=== PATIENT | female | born 2000 | race Caucasian/White ===

== ENCOUNTER 2018-03-19 21:50 | Emergency (ER) | payer OTHER ==
[2018-03-19 21:57] VITALS: BMI 20.9
--- NOTE | 2018-03-19 22:11 | PDOC ---
History of Present Illness - General History Source: Patient Exam Limitations: No Limitations - History of Present Illness Initial Comments: 03/19/18 22:39 The patient is a 17 year old female,, with no significant PMH who presents to the emergency department after seeing some blood on the toilet paper prior to arrival. The patient states her last menstrual period was on February 01. The patient denies any past surgeries. The patient is not currently on any meds. The patient denies chest pain, shortness of breath, headache and dizziness. Denies fever, chills, nausea, vomit, diarrhea and constipation. Denies dysuria, frequency, urgency and hematuria. Allergies: NKA Past surgical history: None reported. Social history: No reported alcohol, drug, or cigarette use. PCP: Dr. Frank <Carlyn Gomez - Last Filed: 03/19/18 22:39> <Angeles Quarles - Last Filed: 03/20/18 01:14> - General Chief Complaint: Vaginal Bleeding Stated Complaint: PREG. VAGINAL BLEEDING Past History <Carlyn Gomez - Last Filed: 03/19/18 22:39> - Past Medical History COPD: No - Suicide/Smoking/Psychosocial Hx Smoking History: Never smoked <Angeles Quarles - Last Filed: 03/20/18 01:14> - Past Medical History Allergies/Adverse Reactions: Allergies Allergy/AdvReac Type Severity Reaction Status Date / Time No Known Allergies Allergy Verified 03/19/18 21:54 Home Medications: Ambulatory Orders Cephalexin Monohydrate [Keflex -] 500 mg PO BID #14 capsule 03/20/18 Cephalexin Monohydrate [Keflex -] 500 mg PO BID #20 capsule 03/20/18 Review of Systems - Review of Systems Able to Perform ROS?: Yes Comments:: 03/19/18 22:40 CONSTITUTIONAL: Absent: fever, no chills, no fatigue EYES: Absent: visual changes ENT: Absent: ear pain, no sore throat CARDIOVASCULAR: Absent: chest pain, no palpitations RESPIRATORY: Absent: cough, no SOB GI: Absent: abdominal pain, no nausea, no vomiting, no constipation, no diarrhea GENITOURINARY: Absent: dysuria, no frequency, no hematuria Present: vaginal spotting. MUSKULOSKELETAL: Absent: no arthralgia, no myalgia Present: left hip pain. mild lower back pain. SKIN: Absent: rash NEURO: Absent: headache <Caryln Gomez - Last Filed: 03/19/18 22:39> *Physical Exam - Vital Signs Last Vital Signs Temp Pulse Resp BP Pulse Ox 99 F 101 H 18 124/97 98 03/19/18 21:55 03/19/18 21:55 03/19/18 21:55 03/19/18 21:55 03/19/18 21:55 - Physical Exam Comments: 03/19/18 22:39 GENERAL: Well-appearing, well-nourished. No apparent distress. HEENT: Normocephalic, atraumatic. PERRL, EOM intact. CARDIOVASCULAR: Normal S1, S2. Regular rate and rhythm. PULMONARY: Clear to auscultation bilaterally. ABDOMEN: Soft, non-distended, non-tender. EXTREMITIES: Normal ROM in all four extremities. No gross deformities. (+) Left hip pain. SKIN: Warm, dry. No rash NEUROLOGICAL: No focal neurological deficits. <Carlyn Gomez - Last Filed: 03/19/18 22:39> - Vital Signs Last Vital Signs Temp Pulse Resp BP Pulse Ox 99 F 101 H 18 124/97 98 03/19/18 21:55 03/19/18 21:55 03/19/18 21:55 03/19/18 21:55 03/19/18 21:55 <Angeles Quarles - Last Filed: 03/20/18 01:14> Medical Decision Making - Medical Decision Making 03/20/18 01:11 Ultrasound shows an intrauterine gestational sac and yolk sac but no pole. No subchorionic bleed. Right ovary appears normal demonstrates normal flow. Left ovary appears normal with a cyst and demonstrates normal flow. Chest no significant free fluid. Impression early intrauterine . Prior to visualization of the pole Patient does not require oh gram as her blood type is <Angeles Quarles - Last Filed: 03/20/18 01:14> *DC/Admit/Observation/Transfer - Attestations Scribe Attestion: 03/19/18 22:40 Documentation prepared by Carlyn Gomez, acting as lead medical technologist for Angeles Quarles MD. <Carlyn Gomez - Last Filed: 03/19/18 22:39> <Angeles Quarles - Last Filed: 03/20/18 01:14> Diagnosis at time of Disposition: UTI (urinary tract infection) Qualifiers: Urinary tract infection type: site unspecified Hematuria presence: without hematuria Qualified Code(s): N39.0 - Urinary tract infection, site not specified Qualifiers: Weeks of gestation: less than 8 weeks Qualified Code(s): Z3A.01 - Less than 8 weeks gestation of - Discharge Dispostion Disposition: HOME Condition at time of disposition: Stable - Prescriptions Prescriptions: Cephalexin Monohydrate [Keflex -] 500 mg PO BID #14 capsule Cephalexin Monohydrate [Keflex -] 500 mg PO BID #20 capsule - Referrals Referrals: Selina Burgos MD [Staff Physician] - Debbie Frank MD [Primary Care Provider] - Silvino Andrea MD [Staff Physician] - - Patient Instructions Printed Discharge Instructions: DI for Urinary Tract Infection (UTI), DI for Vaginal Bleeding During Additional Instructions: YOU NEED TO HAVE A REPEAT PELVIC ULTRASOUND AND REPEAT BHCG IN ONE WEEK PLEASE FOLLOW UP WITH YOUR EXPERIMENTAL MECHANIC OUTBOARD MOTORS YOU HAVE A URINARY TRACT INFECTION AND NEED TO SANDER AND BUFFER YOUR ANTIBIOTICS AND TAKE THEN DIRECTED
[2018-03-19 22:51] LABS: HCG,QUALITATIVE URINE POSITIVE
[2018-03-19 22:58] LABS: URINE APPEARANCE SLCLOUDY; URINE BILIRUBIN NEGATIVE (<2.0 mg/dL); URINE BLOOD 2+ (NEGATIVE); URINE COLOR YELLOW; URINE GLUCOSE (UA) NEGATIVE (NEGATIVE); URINE KETONE NEGATIVE (NEGATIVE); URINE NITRITE NEGATIVE (NEGATIVE); URINE PROTEIN NEGATIVE (NEGATIVE)
[2018-03-19 23:14] LABS: URINE LEUK ESTERASE 2+ (NEGATIVE)
[2018-03-19 23:18] LABS: EPI CELLS FEW /HPF (FEW); URINE HYALINE CAST 2 /lpf; URINE MUCUS RARE
[2018-03-20] MEDS ORDERED: CEPHALEXIN MONOHYDRATE 500 MG CAPSULE (UD) PO STA (00:59)
[2018-03-20] MEDS ORDERED: CEPHALEXIN MONOHYDRATE 500 MG CAPSULE (UD) ONE (01:28)
[2018-03-20 01:42] VITALS: BP 114/72; PULSE 70; TEMP 98.2
== END 2018-03-20 01:40 | disposition home or self-care (01) ==
LOC: JER 21:50
DX: O26.891 Other specified pregnancy related conditions, first trimester (principal); O23.41 Unspecified infection of urinary tract in pregnancy, first trimester; Z3A.01 Less than 8 weeks gestation of pregnancy
CPT/HCPCS: 36415; 76817-TC; 81003; 81015; 84702; 84703; 86850; 86900; 86901; 99282-25

== ENCOUNTER 2018-03-21 20:06 | Emergency (ER) | payer OTHER ==
[2018-03-21 20:09] VITALS: BMI 21.9
--- NOTE | 2018-03-21 20:10 | PDOC ---
Rapid Medical Evaluation Chief Complaint: Vaginal Bleeding Time Seen by Provider: 03/21/18 20:07 Medical Evaluation: Allergies Allergy/AdvReac Type Severity Reaction Status Date / Time No Known Allergies Allergy Verified 03/19/18 21:54 03/21/18 20:07 17 year old femal c/o vaginal bleeding for the last 30 mins. + urine at home. PE: patient alert ox3. Plan ua, ucx, cbc, beta hcg, type and screen , transvaginal U/s patient to the Er for further management of care/
--- NOTE | 2018-03-21 21:10 | PDOC ---
History of Present Illness - General History Source: Patient Exam Limitations: No Limitations - History of Present Illness Initial Comments: 03/21/18 21:33 The patient is a 17 year old female with no significant PMH who presents to the emergency department with vaginal bleeding since earlier today. The patient reports that she took an at home test 6 days ago. She states that she went to see her OBGYN 3 days ago and was treated for a UTI. she also states that she was here 2 days ago by which she had a ultrasound. The patient reports associated clots with her vaginal bleeding. She states that she went through 3 menstrual pads in 30 minutes. The patient reports that her last menstrual was 6 weeks ago. She also reports episode of diarrhea. She denies any vaginal discharge or other urinary symptoms. The patient denies any fever, chills, nausea, vomit, and constipation. She denies chest pain, shortness of breath, headache and dizziness. The patient denies any other complaints <Jeffry Razo - Last Filed: 03/21/18 21:33> <Sheron Wesley - Last Filed: 03/21/18 23:39> - General Chief Complaint: Vaginal Bleeding Stated Complaint: VAGINAL BLEEDING Time Seen by Provider: 03/21/18 20:07 Past History <Jeffry Razo - Last Filed: 03/21/18 21:33> - Past Medical History COPD: No - Reproductive History (#): 1 Para: 0 Cervical CA: No Dysfunctional Uterine Bleeding: No Ectopic : No Endometrial CA: No Polycystic Ovaries: No Therapeutic (s) & number: No Tubal Ligation: No Spontaneous : 0 - Suicide/Smoking/Psychosocial Hx Smoking History: Never smoked <Sheron Wesley - Last Filed: 03/21/18 23:39> - Past Medical History Allergies/Adverse Reactions: Allergies Allergy/AdvReac Type Severity Reaction Status Date / Time No Known Allergies Allergy Verified 03/21/18 20:08 Home Medications: Ambulatory Orders NK [No Known Home Medication] 03/21/18 Review of Systems - Review of Systems Able to Perform ROS?: Yes Comments:: 03/21/18 21:33 GENERAL/CONSTITUTIONAL: No fever or chills. No weakness. HEAD, EYES, EARS, NOSE AND THROAT: No change in vision. No ear pain or discharge. No sore throat. CARDIOVASCULAR: No chest pain or shortness of breath. RESPIRATORY: No cough, wheezing, or hemoptysis. GASTROINTESTINAL: (+)diarrhea . No nausea, vomiting, or constipation. GENITOURINARY: (+)vaginal bleeding, clots. No dysuria, frequency, or change in urination. MUSCULOSKELETAL: No joint or muscle swelling or pain. No neck or back pain. SKIN: No rash NEUROLOGIC: No headache, vertigo, loss of consciousness, or change in strength/ sensation. ENDOCRINE: No increased thirst. No abnormal weight change. HEMATOLOGIC/LYMPHATIC: No anemia, easy bleeding, or history of blood clots. ALLERGIC/IMMUNOLOGIC: No hives or skin allergy. <Jeffry Razo - Last Filed: 03/21/18 21:33> *Physical Exam - Vital Signs Last Vital Signs Temp Pulse Resp BP Pulse Ox 98.3 F 102 H 18 107/87 98 03/21/18 20:06 03/21/18 20:06 03/21/18 20:06 03/21/18 20:06 03/21/18 20:06 - Physical Exam Comments: 03/21/18 21:33 GENERAL: Awake, alert, and fully oriented, in no acute distress HEAD: No signs of trauma EYES: PERRLA, EOMI, sclera anicteric, conjunctiva clear ENT: Auricles normal inspection, hearing grossly normal, nares patent, oropharynx clear without exudates. Moist mucosa NECK: Normal ROM, supple, no lymphadenopathy, JVD, or masses LUNGS: Breath sounds equal, clear to auscultation bilaterally. No wheezes, and no crackles HEART: Regular rate and rhythm, normal S1 and S2, no murmurs, rubs or gallops ABDOMEN: (+)belly soft with mild suprapubic tenderness. normoactive bowel sounds. No guarding, no rebound. No masses CERVICAL: (+)fingertip obs, no CMT, adnexal tenderness EXTREMITIES: Normal range of motion, no edema. No clubbing or cyanosis. No cords, erythema, or tenderness NEUROLOGICAL: Cranial nerves II through XII grossly intact. Normal speech, normal gait SKIN: Warm, Dry, normal turgor, no rashes or lesions noted. <Jeffry Razo - Last Filed: 03/21/18 21:33> - Vital Signs Last Vital Signs Temp Pulse Resp BP Pulse Ox 98.3 F 102 H 18 107/87 98 03/21/18 20:06 03/21/18 20:06 03/21/18 20:06 03/21/18 20:06 03/21/18 20:06 <Sheron Wesley - Last Filed: 03/21/18 23:39> ED Treatment Course - LABORATORY CBC & Chemistry Diagram: 03/21/18 21:30 - RADIOLOGY Radiology Studies Ordered: Category Date Time Status TRANSVAGINAL US PREG [US] Stat Ultrasound 03/21/18 21:05 Ordered <Sheron Wesley - Last Filed: 03/21/18 23:39> Medical Decision Making - Medical Decision Making 03/21/18 21:06 a/p: 17yo female at 5 weeks gestation on 03/20 ultrasound with heavy vag bleeding -3 pads in last 30 min -active bleeding on exam - passing clots -lower abd cramping -concern for active miscarriage Rh + a few days ago on labs Beta >5000 2 days ago will repeat labs and ultrasound currently on abx for Uti follows at [facility] - seen sunday03/21/18 23:35 beta is dropping no IUP on ultrasound today pt with a spontaneous AB discussed ultrasound and beta with the patient discussed need for repeat beta to trend to 0 discussed need to follow up with her CAREER PLACEMENT SERVICES COUNSELOR at the clinic answered all quesitons discussed reasons to return to the ED with increased bleeding 03/21/18 23:37 pt currently on abx for UTI 03/21/18 23:37 stable for d/c to home <Sheron Wesley - Last Filed: 03/21/18 23:39> *DC/Admit/Observation/Transfer - Attestations Scribe Attestion: 03/21/18 21:33 Documentation prepared by Jeffry Razo, acting as medical administrative technician for Sheron Wesley MD <Jeffry Razo - Last Filed: 03/21/18 21:33> - Discharge Dispostion Decision to Admit order: No - Attestations Physician Attestion: 03/21/18 23:39 I, Dr. Sheron Wesley, DO, attest that this document has been prepared under my direction and personally reviewed by me in its entirety. I further attest, that it accurately reflects all work, treatment, procedures and medical decision -making performed by me. <Sheron Wesley - Last Filed: 03/21/18 23:39> Diagnosis at time of Disposition: Spontaneous , UTI (urinary tract infection) - Discharge Dispostion Disposition: HOME Condition at time of disposition: Stable - Referrals Referrals: Debbie Frank MD [Primary Care Provider] - Silvino Andrea MD [Staff Physician] - - Patient Instructions Printed Discharge Instructions: DI for Miscarriage, DI for Urinary Tract Infection (UTI) Additional Instructions: Please continue to take all your antibiotics. Please make an appointment to see your CAREER PLACEMENT SERVICES COUNSELOR. Please return to the ED if you are bleeding through more than 2 pads an hour for 2 hours consecutively. Please take tylenol as needed for pain. Please repeat your Beta HCG in 2 days - on Sunday here in the ED. - Post Discharge Activity
[2018-03-21 21:41] LABS: BASO % 0.6 % (0-2.0); EOS % 0.5 % (0-4.5); HEMATOCRIT 41.5 % (32.4-45.2); HEMOGLOBIN 14.1 GM/dL (10.7-15.3); LYMPH % 35.3 % (8-40); MCH 29.1 pg (25.7-33.7); MEAN CELL VOLUME 85.6 fl (80-96); MEAN PLT VOLUME 8.3 fl (7.5-11.1); MONO % 10.6 % (3.8-10.2); PLATELET COUNT 258 K/MM3 (134-434); RBC 4.84 M/mm3 (3.60-5.2); RDW 14.8 % (11.6-15.6); WHITE BLOOD COUNT 6.1 K/mm3 (4.0-10.0)
[2018-03-21 21:42] LABS: URINE APPEARANCE CLOUDY; URINE BILIRUBIN NEGATIVE (<2.0 mg/dL); URINE BLOOD 3+ (NEGATIVE); URINE COLOR RED; URINE GLUCOSE (UA) NEGATIVE (NEGATIVE); URINE KETONE NEGATIVE (NEGATIVE); URINE NITRITE NEGATIVE (NEGATIVE); URINE UROBILINOGEN NEGATIVE mg/dL (0.2-1.0)
[2018-03-21 21:49] LABS: EPI CELLS RARE /HPF (FEW); URINE LEUK ESTERASE 1+ (NEGATIVE); URINE PROTEIN 2+ (NEGATIVE)
[2018-03-22 00:01] VITALS: BP 110/78; PULSE 78; TEMP 98.5
== END 2018-03-22 00:01 | disposition home or self-care (01) ==
LOC: JER 20:06
DX: O26.891 Other specified pregnancy related conditions, first trimester (principal); O03.9 Complete or unspecified spontaneous abortion without complication; Z3A.01 Less than 8 weeks gestation of pregnancy; Z87.440 Personal history of urinary (tract) infections
CPT/HCPCS: 76817-TC; 81003; 81015; 84702; 85025; 86850; 86900; 86901; 87086; 99281-25

== ENCOUNTER 2018-06-28 03:03 | Emergency (ER) | payer OTHER ==
[2018-06-28 03:19] VITALS: BMI 20.6
--- NOTE | 2018-06-28 03:21 | PDOC ---
History of Present Illness - General Chief Complaint: Vaginal Bleeding Stated Complaint: VAG BLEED/9 WEEKS Time Seen by Provider: 06/28/18 03:16 History Source: Patient, Old Records Exam Limitations: No Limitations - History of Present Illness Travel History: No Initial Comments: 06/28/18 03:21 HISTORY OF PRESENT ILLNESS: 17-year-old with LMP of 04/20/2018 who presents emergency Department with vaginal spotting and left pelvic pain for one day. Patient states she had a positive home test. Patient states she was seen here in March during her previous which ended in miscarriage. She denies any fevers, chills, nausea, vomiting, rectal bleeding, dysuria, hematuria. No recent travel or sick contacts. PAST MEDICAL HISTORY: Denies past medical history SURGICAL HISTORY: Denies ALLERGIES: No known drug allergies REVIEW OF SYSTEMS General/Constitutional: Denies fever or chills. Denies weakness, weight change. HEENT: Denies change in vision. Denies ear pain or discharge. Denies sore throat. Cardiovascular: Denies chest pain or shortness of breath. Respiratory: Denies cough, wheezing, or hemoptysis. Gastrointestinal: Denies nausea, vomiting, diarrhea or constipation. Denies rectal bleeding. Genitourinary: Denies dysuria, frequency, or change in urination. Musculoskeletal: Denies joint or muscle swelling or pain. Denies neck or back pain. Skin and breasts: Denies rash or easy bruising. Neurologic: Denies headache, vertigo, loss of consciousness, or loss of sensation. Psychiatric: Denies depression or anxiety. Endocrine: Denies increased thirst. Denies abnormal weight change. Hematologic/Lymphatic: Denies anemia, easy bleeding, or history of blood clots. Allergic/Immunologic: Denies hives or skin allergy. Denies latex allergy. PHYSICAL EXAM General Appearance: Well-appearing, appropriately dressed. No apparent distress , no intoxication. HEENT: EOMI, PERRLA, normal ENT inspection, normal voice, TMs normal, pharynx normal. No conjunctival pallor. No photophobia, scleral icterus. Neck: Supple. Trachea midline. No tenderness, rigidity, carotid bruit, stridor , lymphadenopathy, or thyromegaly. Respiratory/Chest: Lungs CTAB. No shortness of breath, chest tenderness, respiratory distress, accessory muscle use. No crackles, rales, rhonchi, stridor , wheezing, dullness Cardiovascular: RRR. S1, S2. No JVD, murmur, bradycardia, tachycardia. Vascular Pulses: Dorsalis-Pedis (R): 2+, Dorsalis-Pedis (L): 2+ Gastrointestinal/Abdominal: Normal bowel sounds. Abdomen soft, non-distended. No tenderness or rebound tenderness. No organomegaly, pulsatile mass, guarding, hernia, hepatomegaly, splenomegaly. RAIL CAR MECHANIC: Cervical os closed. Malodorous thick white discharge present. -CMT. No blood in vault. No adnexal tenderness present. Lymphatic: No adenopathy, tenderness. Musculoskeletal/Extremities: Normal inspection. FROM of all extremities, normal capillary refill. Pelvis Stable. No CVA tenderness. No tenderness to extremities, pedal edema, swelling, erythema or deformity. Integumentary: Appropriate color, dry, warm. No cyanosis, erythema, jaundice or rash Neurologic: fingernail technician II-XII intact. Fully oriented, alert. Appropriate mood/affect. Motor strength 5/5. No appreciable EOM palsy, facial droop or sensory deficit. Past History - Past Medical History Allergies/Adverse Reactions: Allergies Allergy/AdvReac Type Severity Reaction Status Date / Time No Known Allergies Allergy Verified 03/21/18 20:08 Home Medications: Ambulatory Orders NK [No Known Home Medication] 03/21/18 COPD: No - Reproductive History (#): 1 Para: 0 Cervical CA: No Dysfunctional Uterine Bleeding: No Ectopic : No Endometrial CA: No Polycystic Ovaries: No Therapeutic (s) & number: No Tubal Ligation: No Spontaneous : 0 - Suicide/Smoking/Psychosocial Hx Smoking History: Never smoked Have you smoked in the past 12 months: No Information on smoking cessation initiated: No Hx Alcohol Use: No Drug/Substance Use Hx: No *Physical Exam - Vital Signs Last Vital Signs Temp Pulse Resp BP Pulse Ox 97.9 F 88 18 109/64 100 06/28/18 03:16 06/28/18 03:16 06/28/18 03:16 06/28/18 03:16 06/28/18 03:16 ED Treatment Course - LABORATORY CBC & Chemistry Diagram: 06/28/18 03:42 06/28/18 03:42 Medical Decision Making - Medical Decision Making 06/28/18 03:37 A/P: 17-year-old woman who is 9 weeks by dates with vaginal spotting RAIL CAR MECHANIC exam performed with PHYLLIS Angulo at the bedside External structures are within normal limits Cervical os is closed No cervical motion tenderness Thick white malodorous discharge present No adnexal masses or tenderness present DDx: Cervical ripening, ectopic , missed AB, completed AB, DVT Labs including type and screen and beta hCG, urine including culture, transvaginal ultrasound 06/28/18 06:12 Laboratory testing is unremarkable with the beta hCG is 83,419.6. Pt is Rh+ Patient is pending ultrasound for dispo. *DC/Admit/Observation/Transfer - Discharge Dispostion Condition at time of disposition: Good - Referrals Referrals: Ana Garcia MD [Primary Care Provider] - - Patient Instructions - Post Discharge Activity
[2018-06-28 03:53] LABS: BASO % 0.2 % (0-2.0); EOS % 0.7 % (0-4.5); HCG,QUALITATIVE URINE Positive; HEMATOCRIT 36.4 % (32.4-45.2); HEMOGLOBIN 12.7 GM/dL (10.7-15.3); LYMPH % 23.1 % (8-40); MCH 29.6 pg (25.7-33.7); MCHC 34.9 g/dl (32.0-36.0); MEAN CELL VOLUME 84.9 fl (80-96); MEAN PLT VOLUME 8.1 fl (7.5-11.1); MONO % 7.1 % (3.8-10.2); NEUT % 68.9 % (42.8-82.8); PLATELET COUNT 249 K/MM3 (134-434); RBC 4.28 M/mm3 (3.60-5.2); WHITE BLOOD COUNT 10.1 K/mm3 (4.0-10.0)
[2018-06-28 03:56] LABS: URINE APPEARANCE CLEAR; URINE BILIRUBIN NEGATIVE (<2.0 mg/dL); URINE COLOR STRAW; URINE GLUCOSE (UA) NEGATIVE (NEGATIVE); URINE KETONE NEGATIVE (NEGATIVE); URINE LEUK ESTERASE NEGATIVE (NEGATIVE); URINE NITRITE NEGATIVE (NEGATIVE); URINE PROTEIN NEGATIVE (NEGATIVE); URINE UROBILINOGEN NEGATIVE mg/dL (0.2-1.0)
[2018-06-28 04:14] LABS: ANION GAP 7 MMOL/L (8-16); BLOOD UREA NITROGEN 9 mg/dL (7-18); CHLORIDE 103 mmol/L (98-107); CO2 28 mmol/L (21-32); CREATININE 0.4 mg/dL (0.55-1.3); GLUCOSE,RANDOM 89 mg/dL (74-106); POTASSIUM 3.9 mmol/L (3.5-5.1); SODIUM 138 mmol/L (136-145)
[2018-06-28 07:03] VITALS: BP 101/62; PULSE 84; TEMP 99.2
--- NOTE | 2018-06-28 07:48 | PDOC ---
*Physical Exam - Vital Signs Last Vital Signs Temp Pulse Resp BP Pulse Ox 99.2 F 84 20 101/62 98 06/28/18 07:02 06/28/18 07:02 06/28/18 07:02 06/28/18 07:02 06/28/18 07:02 ED Treatment Course - LABORATORY CBC & Chemistry Diagram: 06/28/18 03:42 06/28/18 03:42 - ADDITIONAL ORDERS Additional order review: Laboratory Results 06/28/18 06/28/18 06/28/18 03:42 03:42 03:42 Sodium 138 Potassium 3.9 Chloride 103 Carbon Dioxide 28 Anion Gap 7 L BUN 9 Creatinine 0.4 L Creat Clearance w eGFR > 60 Random Glucose 89 Calcium 9.0 Beta HCG, Quant 23320.6 Urine Color Straw Urine Appearance Clear Urine pH 5.0 Ur Specific [place] 1.006 Urine Protein Negative Urine Glucose (UA) Negative Urine Ketones Negative Urine Blood Negative Urine Nitrite Negative Urine Bilirubin Negative Urine Urobilinogen Negative Ur Leukocyte Esterase Negative Urine HCG, Qual Positive Blood Type O POSITIVE Antibody Screen Negative 06/28/18 03:42 RBC 4.28 MCV 84.9 MCHC 34.9 RDW 15.0 MPV 8.1 Neutrophils % 68.9 D Lymphocytes % 23.1 D Monocytes % 7.1 Eosinophils % 0.7 Basophils % 0.2 Medical Decision Making - Medical Decision Making 06/28/18 07:49 Received signout from Neil Smith. Patient is 17F here today with vaginal spotting and left sided pelvic pain. Vitals normal and stable. Rh+, UA negative for infection, beta quant 80k. Pending TVUS. 06/28/18 09:55 TV US shows 9wk2d . Patient states that she does not require vitamin prescription. Will discharge with OB follow up. *DC/Admit/Observation/Transfer Diagnosis at time of Disposition: - Discharge Dispostion Disposition: HOME Condition at time of disposition: Improved - Referrals Referrals: Ana Garcia MD [Primary Care Provider] - - Patient Instructions Printed Discharge Instructions: Threatened Additional Instructions: Your ultrasound shows you have a live 9 weeks and 2 days. Your blood type is o positive. Return for severe bleeding pain, feeling dizzy or any concerns. You should not have intercourse or put anything intravaginally until bleeding stops. - Post Discharge Activity
--- NOTE | 2018-06-28 09:50 | PDOC ---
*Physical Exam - Vital Signs Last Vital Signs Temp Pulse Resp BP Pulse Ox 99.2 F 84 20 101/62 98 06/28/18 07:02 06/28/18 07:02 06/28/18 07:02 06/28/18 07:02 06/28/18 07:02 - Physical Exam General Appearance: Yes: Nourished Respiratory/Chest: positive: Lungs Clear, Normal Breath Sounds Cardiovascular: positive: Regular Rhythm, Regular Rate, S1, S2 Gastrointestinal/Abdominal: positive: Normal Bowel Sounds, Flat, Soft ED Treatment Course - LABORATORY CBC & Chemistry Diagram: 06/28/18 03:42 06/28/18 03:42 - ADDITIONAL ORDERS Additional order review: Laboratory Results 06/28/18 06/28/18 06/28/18 03:42 03:42 03:42 Sodium 138 Potassium 3.9 Chloride 103 Carbon Dioxide 28 Anion Gap 7 L BUN 9 Creatinine 0.4 L Creat Clearance w eGFR > 60 Random Glucose 89 Calcium 9.0 Beta HCG, Quant 30108.6 Urine Color Straw Urine Appearance Clear Urine pH 5.0 Ur Specific [place] 1.006 Urine Protein Negative Urine Glucose (UA) Negative Urine Ketones Negative Urine Blood Negative Urine Nitrite Negative Urine Bilirubin Negative Urine Urobilinogen Negative Ur Leukocyte Esterase Negative Urine HCG, Qual Positive Blood Type O POSITIVE Antibody Screen Negative 06/28/18 03:42 RBC 4.28 MCV 84.9 MCHC 34.9 RDW 15.0 MPV 8.1 Neutrophils % 68.9 D Lymphocytes % 23.1 D Monocytes % 7.1 Eosinophils % 0.7 Basophils % 0.2 Medical Decision Making - Medical Decision Making 06/28/18 09:48 17 yo F currently positive preg test, with vaginal spotting. signed outby Luis Smith. on exam pt sitting comfortably. labs reviewed pos , bhcg in 80,000. us with live IUP will dc home with fu with ob/ blood type O RH pos. 06/28/18 09:50 *DC/Admit/Observation/Transfer - Discharge Dispostion Disposition: HOME Condition at time of disposition: Improved Decision to Admit order: No - Referrals Referrals: Ana Garcia MD [Primary Care Provider] - - Patient Instructions Printed Discharge Instructions: Threatened Additional Instructions: you ultrasound shows you have a live 9 weeks and 2 days. your blood type is o positive. return for severe bleeding pain, feeling dizzy or any concerns. you should not have intercourse or put anything intravaginally until bleeding stops. - Post Discharge Activity
== END 2018-06-28 10:31 | disposition home or self-care (01) ==
LOC: JER 03:03
DX: O26.891 Other specified pregnancy related conditions, first trimester (principal); Z3A.09 9 weeks gestation of pregnancy
CPT/HCPCS: 36415; 76817-TC; 80048; 81003; 84702; 84703; 85025; 86850; 86900; 86901; 87086; 99281-25

== ENCOUNTER 2019-01-25 21:42 | Inpatient (IN) | payer OTHER ==
[~2019-01-25 21:42] MED LIST: AMPICILLIN - 2 GM in SODIUM CHLORIDE 100 ML IVPB ONE
[2019-01-25] MEDS ORDERED: AMPICILLIN SODIUM 2 GM VIAL ONE (22:37)
[2019-01-25] MEDS ORDERED: DEXTROSE 5%-LACTATED RINGERS 1,000 ML IV SCH (23:00)
[2019-01-25 23:02] VITALS: BMI 32.0
[2019-01-25 23:22] LABS: BASO % 0.1 % (0-2.0); EOS % 1.1 % (0-4.5); HEMATOCRIT 38.2 % (32.4-45.2); HEMOGLOBIN 12.8 GM/dL (10.7-15.3); LYMPH % 14.5 % (8-40); MCHC 33.5 g/dl (32.0-36.0); MEAN CELL VOLUME 89.5 fl (80-96); MONO % 4.9 % (3.8-10.2); NEUT % 79.4 % (42.8-82.8); PLATELET COUNT 214 K/MM3 (134-434); RBC 4.27 M/mm3 (3.60-5.2); RDW 15.5 % (11.6-15.6); WHITE BLOOD COUNT 11.3 K/mm3 (4.0-10.0)
--- NOTE | 2019-01-25 23:32 | HP ---
Admitting History and Physical - Admission Chief Complaint: labor pains History of Present Illness: 18 y/o at 39 weeks coems with complaints of pain since 8pm. No lof or bleeding. baby is moving. She is a pt of [facility]. GBS pos, cbc wnl, hiv neg, hb roberta, cf neg History Source: Patient Limitations to Obtaining History: No Limitations - Past Medical History [employer]: No: Alzheimer's, CVA, Dementia, Migraine, Multiple Sclerosis, Peripheral Neuropathy, Parkinson's, Seizure, Syncope, TIA, Vertigo, Other Cardiovascular: No: AFIB, Aneurysm, Aortic Insufficiency, Aortic Stenosis, CAD, CHF, Deep Vein Thrombosis, HTN, Hyperlipdemia, FL, Mitral Insufficiency, Mitral Stenosis, Murmur, Pulmonary Hypertension, Other Pulmonary: No: Asthma, Bronchitis, Cancer, COPD, O2 Dependent, Pneumonia, Previously Intubated, Pulmonary Embolus, Pulmonary Fibrosis, Sleep Apnea, Other Gastrointestinal: No: Ascites, Cancer, Constipation, Crohn's Disease, Diverticulitis, Diverticulosis, Esophageal Varices, Gastritis, GERD, GI Bleed, Hemorrhoids, Hiatal Hernia, Inflamatory Bowel Disease, Irritable Bowel Disease, Pancreatitis, Peptic Ulcer Disease, Ulcerative Colitis, Other Hepatobiliary: No: Cirrhosis, Cholelithiasis, Cholecystitis, Choledocholithiasis , Hepatitis A, Hepatitis B, Hepatitis C, Other Renal/: No: Renal Failure, Renal Inusuff, BPH, Cancer, Hematuria, Hemodialysis , Neurogenic Bladder, Renal Calculi, UTI, Other Reproductive: No: Ectopic , Endometriosis, Fibroids, PID, Polycystic Ovary Syndrome, Postmenopausal, Other ...LMP: 02/01/18 ...: 2 ...Para: 0 Heme/Onc: No: Anemia, B12 Deficiency, Bleeding Disorder, Cancer, Current Chemotherapy, Current Radiation Therapy, Hemochromatosis, Hypercoaguable State, Myeloproliferative Synd, Sickle Cell Disease, Sickle Cell Trait, Thrombocytopenia, Other Infectious Disease: No: AIDS, C-Diff, Herpes Zoster, HIV, MRSA, STD's, Tuberculosis, VREF, Other Psych: No: Addictions, Anxiety, Bipolar, Depression, Panic, Psychosis, Schizophrenia, Other Musculoskeletal: No: Bursitis, Chronic low back pain, Hemiparesis, Hemiplegia, Osteoarthritis, Paraplegia, Other Rheumatology: No: Fibromyalgia, Gout, Lupus, Rheumatoid Arthritis, Sarcoidosis, Vasculitis, Other Endocrine: No: Liam's Disease, Afsaneh's Disease, Diabetes Insipidus, Diabetes Mellitus, Hyperparathyroidism, Hyperthyroidism, Hypothyroidism, Osteopenia, SIADH, Other Dermatology: No: Basal Cell, Cellulitis, Eczema, Melanoma, Psoriasis, Squamous Cell, Other - Past Surgical History Past Surgical History: No: None, AAA Repair, AICD, Amputation, Appendectomy, Arthrosocopy, AV Fistula/Graft, Bariatric Surgery, Breast Biopsy, Bypass, CABG, Carotid Endarterectomy, Cataract Removal, Cholecystectomy, Colectomy, Colonoscopy, Colostomy, Craniotomy, , Cystectomy, Hernia Repair, Hysterectomy, Ileal Conduit, Ileosotomy, Joint Replacement, Kidney Transplant, Laminectomy, Liver Transplant, Mastectomy, Nephrectomy, Oopherectomy, Orchiectomy, Permanent Pacemaker, Prostatectomy, Splenectomy, Stent, Thoracotomy , TURP, Tonsillectomy, Tubal Ligation, Upper Endoscopy, Valve Replacement, Vasectomy, Vein Stripping/Ligation - Advance Directives Advance Directives: No: Living Will, Health Care Proxy, DNR, Organ Donor, Tissue Donor, MOLST - Smoking History Smoking history: Never smoked Have you smoked in the past 12 months: No - Alcohol/Substance Use Hx Alcohol Use: No History of Substance Use: denies: None, Cocaine, Heroin, Marijuana, Prescription , Tranquilizers - Social History Usual Living Arrangement: No: Alone, With Spouse, With Parent, With Significant Other, With Child, Assisted Living, Longterm, Other Home Medications - Allergies Allergies/Adverse Reactions: Allergies Allergy/AdvReac Type Severity Reaction Status Date / Time No Known Allergies Allergy Verified 01/25/19 22:34 - Home Medications Home Medications: Ambulatory Orders Vit No.129/Iron/Folic [ One Daily Tablet] 1 tab PO DAILY Review of Systems - Review of Systems Constitutional: denies: No Symptoms, Chills, Diaphoresis, Fever, Lethargy, Loss of Appetite, Malaise, Night Sweats, Unintentional Wgt. Loss, Weakness, Other Eyes: denies: No Symptoms, Blind Spots, Blurred Vision, Double Vision, Eye Pain , Floaters, Photophobia, Recent Change in Vision, Other HENT: denies: No Symptoms, Difficult Swallowing, Ear Discharge, Ear Pain, Epistaxis, Gingival Bleeding, Hearing Loss, Mouth Swelling, Nasal Congestion, Ocular Prosthesis, Throat Pain, Toothache, Ringing in Ears, Other Neck: denies: No Symptoms, Decreased ROM, Lumps, Pain on Movement, Stiffness, Swollen Glands, Tenderness, Other Cardiovascular: denies: No Symptoms, Chest Pain, Edema, Palpitations, Shortness of Breath, Other Respiratory: denies: No Symptoms, Cough, Exercise Intolerance, Hemoptysis, Orthopnea, PND, Snoring, SOB, SOB on Exertion, Wheezing, Other Gastrointestinal: denies: No Symptoms, Abdominal Pain, Bloating, Constipation, Diarrhea, Dysphagia, Indigestion, Melena, Nausea, Rectal Bleeding, Vomiting, Vomiting Blood, Other Genitourinary: denies: No Symptoms, Burning, Discharge, Dysuria, Flank Pain, Frequency, Hematuria, Incontinence, Lesions, Menses, Pain, Testicular Mass, Testicular Pain, Testicular Swelling, Urgency, Vaginal Bleeding, Other Breasts: denies: No Symptoms Reported, See HPI, Breast Implants, Discharge from Nipple, Lumps, Pain, Skin Changes, Other Musculoskeletal: denies: No Symptoms, Back Pain, Crepitus, Decreased ROM, Extremity Pain, Joint Pain, Joint Swelling, Muscle Pain, Muscle Cramps, Muscle Weakness, Other Integumentary: denies: No Symptoms, Blister, Bruising, Change in Color, Eczema, Erythema, Incision, Lesions, Lump, Pallor, Pruritis, Rash, Wound, Other Neurological: denies: No Symptoms, Change in LOC, Change in Speech, Confusion, Dizziness, Headache, Incoordination, Numbness, Parasthesia, Pre-Existing Deficit , Seizure, Syncope, Tremors, Unsteady Gait, Weakness, Other Endocrine: denies: No Symptoms, Excessive Sweating, Flushing, Increased Hunger, Increased Thirst, Intolerance to Cold, Intolerance to Heat, Unexplained Weight Gain, Unexplained Weight Loss, Other Hematology/Lymphatic: denies: No Symptoms, Easily Bruised, Excessive Bleeding, Swollen Glands, Other Psychiatric: denies: No Symptoms, Altered Sleep Pattern, Anxiety, Depression, Hallucinations, Panic, Paranoia, Suicidal, Other Physical Examination Vital Signs: Vital Signs Temperature 98.7 F 01/25/19 21:50 Pulse Rate 102 H 01/25/19 23:00 Respiratory Rate 20 01/25/19 23:00 Blood Pressure 127/83 01/25/19 23:00 O2 Sat by Pulse Oximetry (%) Constitutional: Yes: Well Nourished Eyes: Yes: WNL HENT: Yes: WNL Neck: Yes: WNL Cardiovascular: Yes: WNL Respiratory: Yes: WNL Gastrointestinal: Yes: WNL ...Rectal Exam: Yes: WNL Renal/: Yes: WNL Breast(s): Yes: WNL Musculoskeletal: Yes: WNL Extremities: Yes: WNL Integumentary: Yes: WNL Neurological: Yes: WNL ...Motor Strength: WNL Psychiatric: Yes: WNL Labs: CBC, BMP 01/25/19 22:10 Assessment/Plan as above admit labs expect
[2019-01-25 23:36] LABS: INR 0.88 (0.83-1.09); PROTHROMBIN TIME (PATIENT) 10.4 SEC (9.7-13.0)
[2019-01-25] MEDS ORDERED: ELECTROLYTE-148 SOLN 1,000 ML IV SCH (23:45)
[2019-01-25 23:48] LABS: ANION GAP 10 MMOL/L (8-16); BLOOD UREA NITROGEN 11 mg/dL (7-18); CALCIUM 8.9 mg/dL (8.5-10.1); CHLORIDE 104 mmol/L (98-107); CO2 23 mmol/L (21-32); CREATININE 0.5 mg/dL (0.55-1.3); GLUCOSE,RANDOM 128 mg/dL (74-106); POTASSIUM 3.8 mmol/L (3.5-5.1); SODIUM 136 mmol/L (136-145)
[2019-01-26] MEDS ORDERED: OXYTOCIN 30 UNITS in 0.9% NS 30 UNIT/500 ML INFUS.BAG IVPB ONE (00:28)
[2019-01-26] MEDS ORDERED: OXYTOCIN 30 UNITS in 0.9% NS 30 UNIT/500 ML INFUS.BAG IVPB SCH (00:30)
--- NOTE | 2019-01-26 01:11 | PN ---
Ante-Partal Exam - Subjective Vital Signs: Vital Signs Temperature 98.7 F 01/25/19 21:50 Pulse Rate 102 H 01/25/19 23:00 Respiratory Rate 20 01/25/19 23:00 Blood Pressure 127/83 01/25/19 23:00 O2 Sat by Pulse Oximetry (%) Bleeding: No Headache: No Visual changes: No Right upper quadrant pain: No - Contractions Contractions: Yes Regularity: Regular Intensity: Moderate Monitor Mode: External - Exam during Labor Heart Rate: 150 Variability: Moderate Heart Rate Location: [facility] Category: I Monitor Accelerations: Present Monitor Decelerations: None Exam: Vaginal Dilatation (cm): 9 Effacement (%): 100 Amniotic Membrane Status: Ruptured Nitrazine Test: Positive Amniotic Fluid: Clear Station: 0 - Assessment/Plan Assessment/Plan: expect
[2019-01-26] MEDS ORDERED: AMPICILLIN SODIUM 1 GM VIAL ONE (01:37)
[2019-01-26] MEDS ORDERED: AMPICILLIN - 1 GM in SODIUM CHLORIDE 100 ML IVPB SCH (02:30)
[2019-01-26] MEDS ORDERED: LIDOCAINE HCL 1% PRESERVATIVE FREE - 30ML VIAL ONE (03:57)
[2019-01-26] MEDS ORDERED: OXYTOCIN 20 UNITS in 0.9% NS 20 UNIT/1,000 ML INFUS.BAG IV ONE (03:57)
[2019-01-26] MEDS ORDERED: BISACODYL 10 MG SUPP.RECT RC PRN (04:17)
[2019-01-26] MEDS ORDERED: WITCH HAZEL 50% (TUCKS) 40 PAD/JAR PAD TP PRN (04:17)
[2019-01-26] MEDS ORDERED: METHYLERGONOVINE MALEATE 0.2 MG/1 ML AMP IM PRN (04:17)
[2019-01-26] MEDS ORDERED: ACETAMINOPHEN 325 MG TABLET (FP) PO PRN (04:17)
[2019-01-26] MEDS ORDERED: BENZOCAINE 20% 57 GM BOTTLE TP PRN (04:17)
[2019-01-26] MEDS ORDERED: BENZOCAINE 28 GM HEMORRHOIDAL OINTMENT TP PRN (04:17)
[2019-01-26] MEDS ORDERED: IBUPROFEN 600 MG TABLET (FP) PO PRN (04:17)
--- NOTE | 2019-01-26 04:23 | PN ---
Delivery - Delivery Vaginal Delivery: No Problems EBL (cc): 500 Delivery, Single - Stages of Labor Date 1st Stage Initiatied: 01/26/19 Time 1st Stage Initiated: 20:00 Date 2nd Stage Initiated: 01/26/19 Date of Delivery: 01/26/19 - Feeding Plan Initial Plan: Elected not to breastfeed exclusively throughout hospitalization Remarks - Remarks Remarks: ebl 500 can x 1 and cut
[2019-01-26] MEDS ORDERED: OXYTOCIN 20 UNITS in 0.9% NS 20 UNIT/1,000 ML INFUS.BAG IV SCH (04:30)
[2019-01-26] MEDS: PRENATAL VITAMINS W/ FOLIC ACID TABLET (FP) PO SCH (10:14)
[2019-01-27 07:10] LABS: BASO % 0.3 % (0-2.0); EOS % 0.7 % (0-4.5); HEMATOCRIT 31.9 % (32.4-45.2); HEMOGLOBIN 10.8 GM/dL (10.7-15.3); LYMPH % 17.5 % (8-40); MCH 29.9 pg (25.7-33.7); MCHC 33.8 g/dl (32.0-36.0); MEAN CELL VOLUME 88.6 fl (80-96); MEAN PLT VOLUME 8.1 fl (7.5-11.1); MONO % 5.8 % (3.8-10.2); NEUT % 75.7 % (42.8-82.8); PLATELET COUNT 193 K/MM3 (134-434); RDW 15.9 % (11.6-15.6); WHITE BLOOD COUNT 13.5 K/mm3 (4.0-10.0)
[2019-01-27] MEDS: PRENATAL VITAMINS W/ FOLIC ACID TABLET (FP) PO SCH (09:24)
--- NOTE | 2019-01-27 10:02 | PN ---
Post Progress Note Post Day: 1 Type of Delivery: Vital Signs: Vital Signs Temperature 98.0 F 01/27/19 08:00 Pulse Rate 83 01/27/19 08:00 Respiratory Rate 18 01/27/19 08:00 Blood Pressure 125/64 01/27/19 08:00 O2 Sat by Pulse Oximetry (%) 100 01/26/19 05:10 Breast Exam: Yes: Soft Uterus: Yes: Fundus Firm Abdomen/GI: Yes: Abdomen soft Lochia: Yes: Rubra Lochia, amount: Small Extremities: Yes: Calves non-tender Perineum: Yes: Intact Activity: Ambulating - Labs Labs: CBC WBC 13.5 K/mm3 (4.0-10.0) H 01/27/19 06:30 RBC 3.60 M/mm3 (3.60-5.2) 01/27/19 06:30 Hgb 10.8 GM/dL (10.7-15.3) 01/27/19 06:30 Hct 31.9 % (32.4-45.2) L D 01/27/19 06:30 MCV 88.6 fl (80-96) 01/27/19 06:30 MCH 29.9 pg (25.7-33.7) 01/27/19 06:30 MCHC 33.8 g/dl (32.0-36.0) 01/27/19 06:30 RDW 15.9 % (11.6-15.6) H 01/27/19 06:30 Plt Count 193 K/MM3 (134-434) 01/27/19 06:30 MPV 8.1 fl (7.5-11.1) 01/27/19 06:30 Absolute Neuts (auto) 10.2 K/mm3 (1.5-8.0) H 01/27/19 06:30 Neutrophils % 75.7 % (42.8-82.8) 01/27/19 06:30 Lymphocytes % 17.5 % (8-40) D 01/27/19 06:30 Monocytes % 5.8 % (3.8-10.2) 01/27/19 06:30 Eosinophils % 0.7 % (0-4.5) 01/27/19 06:30 Basophils % 0.3 % (0-2.0) 01/27/19 06:30 Nucleated RBC % 0 % (0-0) 01/27/19 06:30 Assessment/Plan ppd 1 no issues continue pp care oob
--- NOTE | 2019-01-27 10:34 | EKG ---
Test Reason : Blood Pressure : / mmHG Vent. Rate : 116 BPM Atrial Rate : 116 BPM P-R Int : 122 ms QRS Dur : 066 ms QT Int : 294 ms P-R-T Axes : 045 047 011 degrees QTc Int : 408 ms SINUS TACHYCARDIA OTHERWISE NORMAL ECG NO PREVIOUS ECGS AVAILABLE Confirmed by RADHA GREGORY MD ([id number]) on 01/27/2019 10:33:46 AM Referred By: Mirian STOUT Confirmed By:RADHA GREGORY MD
[2019-01-27] MEDS ORDERED: FLU VACCINE QUAD 60 MCG/0.5 ML (MDV 18-19) IM ONE (14:00)
[2019-01-27] MEDS ORDERED: DIPHTH,PERTUSS(ACELL),TET 0.5 ML DISP.SYRIN IM ONE (14:00)
[2019-01-27] MEDS ORDERED: SENNOSIDES/DOCUSATE COMBO (SENNA PLUS) TABLET (UD) PO PRN (22:00)
[2019-01-28 08:44] VITALS: BP 107/67; PULSE 97; TEMP 97.7
[2019-01-28] MEDS: PRENATAL VITAMINS W/ FOLIC ACID TABLET (FP) PO SCH (09:28)
--- NOTE | 2019-01-28 13:49 | PN ---
Post Progress Note Post Day: 2 Type of Delivery: Vital Signs: Vital Signs Temperature 97.7 F 01/28/19 08:15 Pulse Rate 97 H 01/28/19 08:15 Respiratory Rate 18 01/28/19 08:15 Blood Pressure 107/67 01/28/19 08:15 O2 Sat by Pulse Oximetry (%) 100 01/26/19 05:10 Breast Exam: Yes: Soft Uterus: Yes: Fundus Firm Abdomen/GI: Yes: Abdomen soft Lochia: Yes: Rubra Lochia, amount: Small Extremities: Yes: Calves non-tender Perineum: Yes: Intact - Labs Labs: CBC WBC 13.5 K/mm3 (4.0-10.0) H 01/27/19 06:30 RBC 3.60 M/mm3 (3.60-5.2) 01/27/19 06:30 Hgb 10.8 GM/dL (10.7-15.3) 01/27/19 06:30 Hct 31.9 % (32.4-45.2) L D 01/27/19 06:30 MCV 88.6 fl (80-96) 01/27/19 06:30 MCH 29.9 pg (25.7-33.7) 01/27/19 06:30 MCHC 33.8 g/dl (32.0-36.0) 01/27/19 06:30 RDW 15.9 % (11.6-15.6) H 01/27/19 06:30 Plt Count 193 K/MM3 (134-434) 01/27/19 06:30 MPV 8.1 fl (7.5-11.1) 01/27/19 06:30 Absolute Neuts (auto) 10.2 K/mm3 (1.5-8.0) H 01/27/19 06:30 Neutrophils % 75.7 % (42.8-82.8) 01/27/19 06:30 Lymphocytes % 17.5 % (8-40) D 01/27/19 06:30 Monocytes % 5.8 % (3.8-10.2) 01/27/19 06:30 Eosinophils % 0.7 % (0-4.5) 01/27/19 06:30 Basophils % 0.3 % (0-2.0) 01/27/19 06:30 Nucleated RBC % 0 % (0-0) 01/27/19 06:30 Assessment/Plan dc home
--- NOTE | 2019-03-21 00:32 | DS ---
DATE OF ADMISSION: 01/25/2019 DATE OF DISCHARGE: 01/28/2019 The patient was seen throughout her hospital course, noted to be doing well. There were no issues or concerns. The patient was subsequently discharged home to be followed up in the office as scheduled. SHAN KILGORE M.D. [id number]
== END 2019-01-28 13:45 | disposition home or self-care (01) | DRG 560 ==
LOC: JDEL 21:42 → JLDR 21:50 → J3W 01-26 05:46
PROVIDERS: ADMIT Obstetrics & Gynecology; ATTEND Obstetrics & Gynecology
PROC: 10E0XZZ Delivery of Products of Conception, External Approach (ICD-10-PCS; principal; 2019-01-26)
DX: O80 Encounter for full-term uncomplicated delivery (principal); Z3A.39 39 weeks gestation of pregnancy; Z37.0 Single live birth
CPT/HCPCS: 36415; 59025; 59409; 80048; 85025; 85610; 85730; 86593; 86850; 86900; 86901; 90688; 90715; 93005; 93010; G0008